=== PATIENT | female | born 1960 | race African-American/Black ===

== ENCOUNTER → 2017-04-10 | Outpatient (CLI) | payer OTHER ==
[~2017-04-10] VITALS: Ht 152.4 cm; Wt 65.3 kg
[~2017-04-10] MED LIST: BACLOFEN 10MG T10 MG PO; DEXILANT60 MG PO; DICLOFENAC SOD50 M1 PO; FLEXERIL PO; LYRICA 50 MG50 MG PO; MOBIC7.5 MG PO; MULTI-VITAMIN1 EAC5 PO; NABUMETONE 500500 M1 PO; TRAMADOL 50 MG50 MG PO; VALCYCLOVIR PO; VITAMIN C + RO500 MG PO; VOLTAREN GEL 1100 G1 TOP
--- NOTE | ~2017-04-10 | HPC ---
[facility] [place] [address] PAIN MANAGEMENT CONSULTATION Name: LÁZARO CHEW Room #: REG [facility].#: [id number] Admission: 04/10/17 Attend Phys: Ilya Herndon DO Discharge: Date of : 60 Report #: [id number] THIS REPORT FOR: //name// CC: FAM physician/PCP Yehuda Herndon DATE OF SERVICE: 04/10/2017 REFERRING PHYSICIAN: Yehuda Mckeon MD CHIEF COMPLAINT: Low back pain, bilateral thigh pain and groin pain, left greater than right. HISTORY OF PRESENT ILLNESS: As you know, the patient is a 56-year-old female who was last seen in our clinic addressing low back pain, bilateral groin pain and anterior thigh pain. We tried the patient on Lyrica, which the patient reports made her symptoms worse. She discontinued use within 2 weeks. She started gabapentin and now 200 mg dose and it appears that this is working better. She is now placing a pain score 5/10. She states the pain is numb, tingling, radiating in sensation, exacerbated with standing and sitting, improves with lying down. She returns today in followup visit for possible adjustments in medication therapy. ALLERGIES: PENICILLIN. CURRENT MEDICATIONS: Dexilant, valacyclovir, diclofenac, and gabapentin. SOCIAL HISTORY: The patient continues to smoke. She has done so for 15 years. Denies IV or illicit drug use. Admits to 3 alcoholic beverages per week. She is unaccompanied today. IMAGING: No new imaging available. PHYSICAL EXAMINATION: VITAL SIGNS: Blood pressure 141/83, pulse 111, respiratory rate 16, unlabored. The patient is 100% on room air. Height 5 feet tall, weight 144 pounds, BMI calculated 28.1. GENERAL: Well-developed, well-nourished, well-hydrated 56-year-old female appearing her stated age. She is placing pain score at 4-5/10. HEENT: Normocephalic, atraumatic. Pupils equal, round, reactive to light. Extraocular muscles are intact. Sclerae are nonicteric without injection. NEUROLOGIC: Cranial nerves 2 through 12 grossly intact. Speech is fluent. EXTREMITIES: Show no clubbing, no cyanosis, no edema. MUSCULOSKELETAL: Seated straight leg raising is negative. Supine straight leg raising is negative. ELLIOT test is negative. Modified Gaenslen's positive for [address] [address] PAIN MANAGEMENT CONSULTATION Name: LÁZARO CHEW Room #: REG [facility]#: [id number] Admission: 04/10/17 Attend Phys: Ilya Herndon DO Discharge: Date of : 60 Report #: [id number] axial low back pain. Ankle clonus negative. Babinski is negative. ASSESSMENT: 1. Lumbar radicular symptoms. 2. Osteoarthritis. 3. Peripheral neuropathy. 4. Intractable pain. PLAN: 1. The patient has returned today in followup visit where we have discussed the efficacy of gabapentin. It appears the patient is doing better with medication. I recommend increasing the dose as tolerated. The patient did contact her primary care physician who is providing his medications and escalate the dose as recommended. She does feel that she is receiving some benefit, I recommend continuation if needed. 2. The patient was provided prescription of diclofenac 50 mg dose 1 tab p.o. t.i.d., I have given the patient #90 tablets, 2 refills. This is being added for anti-inflammatory activity. The patient is tolerating the medication well and wishes to continue therapy. She is denying any side effects of dyspepsia, worsening blood pressure, lower extremity edema with its use. We will continue medication as directed. 3. We will see the patient back in followup visit in 3 months. She can follow up with her PCP if she prefers and receive medications through their services. This is not a controlled substance and should be easily obtained from their clinics. We will be available to see her back in followup visit on an as-needed basis. Otherwise, 3 months for medication management. By: [id number] Ilya Herndon DO /agus
[2017-04-10 12:31] VITALS: BP 141/83
== END ==
LOC: PAIN 02-06 11:00
DX: M54.16 Radiculopathy, lumbar region (principal); M19.90 Unspecified osteoarthritis, unspecified site; R10.30 Lower abdominal pain, unspecified; F17.200 Nicotine dependence, unspecified, uncomplicated; G62.9 Polyneuropathy, unspecified; G89.29 Other chronic pain; Z72.89 Other problems related to lifestyle

== ENCOUNTER → 2017-05-22 | Outpatient (CLI) | payer OTHER ==
[~2017-05-22] VITALS: Ht 152.4 cm; Wt 65.8 kg
[~2017-05-22] MED LIST changes: +DETROL LA4 MG PO; +MOBIC15 MG PO; +NEURONTIN 300300 M1 PO; +NORTRIPTYLINE H25 M3 PO; +PAMELOR50 MG PO; +PAMELOR75 MG PO
--- NOTE | ~2017-05-22 | HPC ---
[facility] [address] [place] [address] PAIN MANAGEMENT CONSULTATION Name: LÁZARO CHEW Room #: REG [facility] M..#: [id number] Admission: 05/22/17 Attend Phys: Ilya Herndon DO Discharge: Date of : 60 Report #: [id number] THIS REPORT FOR: //name// CC: Yehuda Schroederie Frederick DATE OF SERVICE: 05/22/2017 CHIEF COMPLAINT: Low back pain, bilateral thigh pain, groin pain, left greater than right. HISTORY OF PRESENT ILLNESS: As you know, the patient is a 56-year-old female who has been complaining of low back pain, bilateral thigh pain, groin pain with the left side greater than right. We have tried the patient on medication management in hopes of improving neuropathic pain. We tried her on Lyrica, but she discontinued use within 2 weeks. We started the patient on gabapentin, but she has not been taking much of the medication. She is concerned about potential side effects, though she has experienced none to date. She returns today in followup visit stating pain level of 5/10, states pain is exacerbated with walking, standing; improves with lying down. Describes pain as numbness and tingling. She has no changes in medical history since our last visit. ALLERGIES: PENICILLIN. CURRENT MEDICATIONS: Dexilant, acyclovir, diclofenac, gabapentin. SOCIAL HISTORY: The patient continues to smoke. She has done so for 15 years. Denies IV or illicit drug use. Admits to 3 alcoholic beverages per week. She is unaccompanied today. IMAGING: No new imaging available. PHYSICAL EXAMINATION: VITAL SIGNS: Blood pressure 159/93, pulse is 133, respiratory rate 16 and unlabored. The patient is 100% on room air. Height 5 feet tall, weight 145 pounds, BMI calculated 28.3. GENERAL: Well-developed, well-nourished, well-hydrated 56-year-old female, appears stated age, pain is rated at 5/10. HEENT: Normocephalic, atraumatic. Pupils equal, round, reactive to light. Extraocular muscles are intact. Speech fluent. EXTREMITIES: Show no clubbing, no cyanosis, no edema. MUSCULOSKELETAL: Seated straight leg raising negative. Supine straight leg raising negative. ELLIOT test negative. Modified Gaenslen's positive for some axial low back pain. Muscle bulk and tone equal and symmetrical in lower extremities. Stance slightly forward flexed lumbar spine. Gait appears mildly [facility] [address] [place] [address] PAIN MANAGEMENT CONSULTATION Name: LÁZARO CHEW Room #: [facility]#: [id number] Admission: 05/22/17 Attend Phys: Ilya Herndon DO Discharge: Date of : 60 Report #: [id number] antalgic. ASSESSMENT: 1. Lumbar radicular symptoms. 2. Osteoarthritis. 3. Peripheral neuropathy of unknown origin. 4. Chronic intractable pain. 5. Essential hypertension. PLAN: 1. The patient has returned today in followup visit indicating concern about initiating gabapentin therapy. She is concerned she will begin to experience side effects, though she is yet to experience side effects at this time. I recommend escalating dose until which time either side effects become intolerable or pain is improved. As you are aware, gabapentin has a very safe therapeutic window and these medications can be titrated successfully without long-term issues or deficits. I recommend the patient to continue escalating the dose until which time pain is either improved or side effects become intolerable such as sleepiness, disorientation, confusion, mental slowing. At present, the patient is at 200 mg at night, will escalate to 300 mg at night for 7 nights, then increase to 600 mg at night for 7 nights, then to 900 mg at night for 7 nights, then 300 mg morning and 900 mg at night, she was given #120 of the gabapentin 300 mg tablets to initiate the therapy. She was advised anytime during the titration if she notes improvement in symptoms without side effects, stabilize at that dose; if no improvement in symptoms, no side effects, continue the titration as directed. If she reaches a level of side effects with no improvement in symptoms, she is to contact our clinic for further instructions. 2. The patient's blood pressure was noted to be quite elevated today. Blood pressure was 159/93. Previous blood pressure was 141/83. I do believe that this is due to essential hypertension and adjustment needs to be made in the patient's medications. I have suggested the patient return to see her PCP for further evaluation and possible initiation of antihypertensives. 3. We will see the patient back in followup visit in about one month to review efficacy of the gabapentin alteration. <ELECTRONICALLY SIGNED> By: Ilya Herndon DO 05/29/17 0908 [id number] Ilya Herndon DO /nt
[2017-05-22 09:46] VITALS: BP 159/93
== END ==
LOC: PAIN 07:12
DX: M54.16 Radiculopathy, lumbar region (principal); R10.30 Lower abdominal pain, unspecified; M19.91 Primary osteoarthritis, unspecified site; G62.9 Polyneuropathy, unspecified; G89.29 Other chronic pain; I10 Essential (primary) hypertension; Z72.89 Other problems related to lifestyle

== ENCOUNTER → 2017-07-10 | Outpatient (CLI) | payer OTHER ==
[~2017-07-10] VITALS: Ht 152.4 cm; Wt 64.5 kg
--- NOTE | ~2017-07-10 | HPC ---
[facility] [place] [place] [address] PAIN MANAGEMENT CONSULTATION Name: LÁZARO CHEW Room #: REG [facility]..#: [id number] Admission: 07/10/17 Attend Phys: Ilya Herndon DO Discharge: Date of : 60 Report #: [id number] THIS REPORT FOR: //name// CC: Yehuda Mack MD DATE OF SERVICE: 07/10/2017 REFERRING PHYSICIAN: Yehuda Mckeon MD CHIEF COMPLAINT: Bilateral lower extremity pain. HISTORY OF PRESENT ILLNESS: As you know, the patient is a 56-year-old female who complains of low back pain, bilateral anterior thigh pain, groin pain and bilateral lower extremity pain. She is continuing workup through neurology for small peripheral nerve fiber issues. She recently underwent EMG, which shows a subacute mild right lumbosacral radiculopathy, but also shows the possibility of small nerve issues. She continues the workup with the neurologists. She has been referred back to our clinic to discuss options for treatment for this ongoing paresthesias. She is placing pain score at 8/10, states her symptoms are numbness, tingling, constant, exacerbated with walking, standing, putting shoes on her socks and lying down appears to improve pain. She has been referred back to our clinic to discuss the possibility of making some changes in medication therapy to address neuropathic symptoms. ALLERGIES: PENICILLIN. CURRENT MEDICATIONS: Meloxicam 15 mg once a day, gabapentin 300 mg twice a day, Detrol-LA 4 mg per day, Dexilant 60 mg per day, and valacyclovir 1 gram every day. SOCIAL HISTORY: The patient continues to smoke, has done so for greater than 16 years. Denies IV or illicit drug use, admits to 3 alcoholic beverages per week. She is accompanied by her niece who is present in room today. IMAGING: No new imaging available. PQRS: The patient has no known osteoarthritis or rheumatoid arthritis. She places pain intensity at 8/10. She is not a fall risk, has not had a fall in the past 3 months. She is not on blood thinners. She does have diagnosis of hypertension. She is not on opioids and not under opioid contract. She has a medium level concern for opioid dependency. Functional assessment tool 54/70 indicating severe interference of daily activities secondary to pain. [address] [address] PAIN MANAGEMENT CONSULTATION Name: LÁZARO CHEW Room #: REG [facility]#: [id number] Admission: 07/10/17 Attend Phys: Ilya Herndon DO Discharge: Date of : 60 Report #: [id number] PHYSICAL EXAMINATION: VITAL SIGNS: Blood pressure 163/99, pulse is 121, respiratory rate 20 and unlabored, the patient is 100% on room air, height 5 feet tall, weight 142.2 pounds, and BMI calculated 27.8. GENERAL: Well-developed, well-nourished, well-hydrated 56-year-old female, appearing her stated age, placing current pain score at 8/10. HEENT: Normocephalic, atraumatic. Pupils are equal, round, and reactive to light. Extraocular muscles are intact. NEUROLOGIC: Speech fluent. EXTREMITIES: Show no clubbing, no cyanosis, and no edema. MUSCULOSKELETAL: Seated straight leg raising negative. Supine straight leg raising negative. Tyrone's test negative. Modified Gaenslen's positive for some axial low back pain. There is no hyperalgesia or allodynia noted over the lower extremities in all dermatomal distributions. Palpation of the distal pulses is normal. No temperature variation from left to right lower extremity. She does have tenderness to palpation at 10 of 18 tender points indicative of myofascial pain. ASSESSMENT: 1. Peripheral neuropathy. 2. Small fiber neuropathy. 3. Chronic lumbar radiculopathy. 4. Myofascial pain. 5. Chronic intractable pain. PLAN: 1. The patient has returned today in followup visit where we have discussed the recent workup with neurology. It appears that she does have a mild lumbar radiculopathy only involving one of the lower extremities. The EMG indicates right-sided specifically. This would not account for the patient's numbness and tingling bilaterally, the distribution of symptoms is generalized multi-dermatomal and would not correlate to the findings of that EMG. There was some suggestion that the patient might be suffering from small fiber neuropathy, I feel this is more likely given the distribution of symptoms the patient has been experiencing. She does present very similarly to early fibromyalgia type picture as she is now experiencing generalized pain in nondermatomal distribution with excitation of neuronal fibers causing pain. I would recommend given the findings on physical exam, the possibility she may be suffering from neuropathic symptoms specifically that we begin to escalate the appropriate medications in this case, neuropathic pain medications. The patient is currently on a very low dose of gabapentin and I believe escalating this dose is going to be important, whether this is going to resolve the symptoms from a neuropathy standpoint I am not confident, but certainly we need to address the neuropathy with neuropathic symptom management. 2. We discussed the different neuropathic pain medications we have available, these would include Neurontin in the form of either immediate release or long [address] [address] PAIN MANAGEMENT CONSULTATION Name: LÁZARO CHEW Room #: REG [facility]#: [id number] Admission: 07/10/17 Attend Phys: Ilya Herndon DO Discharge: Date of : 60 Report #: [id number] acting Gralise, we discussed Lyrica, we discussed nortriptyline, amitriptyline, we discussed Cymbalta at higher doses, we discussed the sodium channel blockers as possible treatment options. After a long discussion of the various medications, we chose to move forward with long acting gabapentin in hopes of being able to provide the patient with escalating doses of medication with lower side effects than we see with immediate release gabapentin. At present, the patient is experiencing some somnolence and daytime sleepiness secondary to her gabapentin therapy, this would indicate that transitioning to the long-acting form of this medication would be most appropriate. I wish to continue to escalate the Neurontin as that has a very safe side effect profile and I believe can be extremely effective in controlling the patient's symptoms. We will make the following changes today. 3. The patient will be started on Gralise 900 mg dose, she was given a titration pack to escalate from 900 mg once a day, which is the equivalent of 900 mg 3 times a day of immediate release formulation and then escalate from that point forward changing doses every 4 days, she will do 900 mg for 4 days at night, then moved to 1200 mg for 4 days at night, then 1500 mg for 4 days, then up to 1800 mg assuming it is necessary. The patient was advised anytime during the titration she notes improvement in symptoms to contact our clinic to advise us of the dosing that she is currently on and we will make that prescription available. If the Gralise is ineffective or side effects are reached early and no improvement in symptoms, we will have the patient return to trial the next in the series of medications likely either Lyrica or initiation of nortriptyline, amitriptyline combination. 4. We wish to thank Dr. Mckeon for the referral of the patient to our clinic, once we have stabilized the patient on the medication, we will be returning her to your capable hands. <ELECTRONICALLY SIGNED> By: Ilya Herndon DO 07/24/17 0858 [id number] Ilya Herndon DO /nt
[2017-07-10 08:40] VITALS: BP 163/99
== END ==
LOC: PAIN 06-19 22:46
DX: M54.16 Radiculopathy, lumbar region (principal); G62.9 Polyneuropathy, unspecified; M79.1 Myalgia; G89.4 Chronic pain syndrome; M79.605 Pain in left leg; M79.604 Pain in right leg

== ENCOUNTER → 2017-07-24 | Outpatient (CLI) | payer OTHER ==
[~2017-07-24] VITALS: Ht 152.4 cm; Wt 63.5 kg
[~2017-07-24] MED LIST changes: -PAMELOR50 MG PO; -PAMELOR75 MG PO
[2017-07-24 14:26] VITALS: BP 163/95
== END ==
LOC: PAIN 07:04
DX: M79.604 Pain in right leg (principal); M79.605 Pain in left leg; I10 Essential (primary) hypertension; M19.90 Unspecified osteoarthritis, unspecified site; Z79.891 Long term (current) use of opiate analgesic

== ENCOUNTER → 2017-11-28 | Outpatient (CLI) | payer OTHER ==
[~2017-11-28] VITALS: Ht 152.4 cm; Wt 69.1 kg
[~2017-11-28] MED LIST changes: +PAMELOR50 MG PO; +PAMELOR75 MG PO
[2017-11-28 14:42] VITALS: BP 134/82
== END ==
LOC: PAIN 06:29
DX: Z09 Encounter for follow-up examination after completed treatment for conditions other than malignant neoplasm (principal); M79.604 Pain in right leg; I10 Essential (primary) hypertension; Z87.891 Personal history of nicotine dependence; Z79.899 Other long term (current) drug therapy

== ENCOUNTER → 2018-03-05 | Outpatient (CLI) | payer OTHER ==
[~2018-03-05] VITALS: Ht 152.4 cm; Wt 70.0 kg
--- NOTE | ~2018-03-05 | HPC ---
[facility] [place] [address] [place] [address] PAIN MANAGEMENT CONSULTATION Name: LÁZARO CHEW Room #: REG [facility].#: [id number] Admission: 03/05/18 Attend Phys: Ilya Herndon DO Discharge: Date of : 60 Report #: [id number] THIS REPORT FOR: //name// CC: Yehuda Mack MD DATE OF SERVICE: 03/05/2018 CHIEF COMPLAINT: Bilateral lower extremity pain with paresthesias. HISTORY OF PRESENT ILLNESS: As you know, the patient is a 57-year-old female reporting pain today of around 2-3/10. We have started the patient on neuropathic pain medication in the form of nortriptyline, which has been quite successful in alleviating the patient's bilateral lower extremity paresthesias. She returns today in followup visit requesting refills of nortriptyline at 75 mg dose. She takes 2 tabs p.o. at bedtime for a total of 150 mg per day. She is denying any side effects to medication and notes excellent benefit with its use. She returns today requesting refill of medications. She denies any new injury, new trauma or any changes in medical history since our last visit. ALLERGIES: No known drug allergies. CURRENT MEDICATIONS: Nortriptyline 150 mg p.o. q.a.m., meloxicam 15 mg once a day, Detrol-LA 4 mg once a day, Dexilant 60 mg once a day, valacyclovir 1 gram once a day. SOCIAL HISTORY: The patient continues to smoke. She has done this for 17 years. Denies IV or illicit drug use. Admits to 3 alcoholic beverages per week. She is unaccompanied today. IMAGING: No new imaging available. PHYSICAL EXAMINATION: VITAL SIGNS: Blood pressure 143/99, pulse 119, respiratory rate 16 and unlabored. The patient is 100% on room air. Height 5 feet tall, weight 154.4 pounds, BMI calculated 30.2. GENERAL: Well-developed, well-nourished, well-hydrated 57-year-old female. She appears her stated age. She is placing current pain score at 2-3/10. HEENT: Normocephalic, atraumatic. Pupils equal, round, reactive to light. Extraocular muscles are intact. Sclerae nonicteric without injection. NEUROLOGIC: Cranial nerves 2 through 12 grossly intact. Speech is fluent. The patient deemed an excellent historian. LUNGS: Clear, no wheeze, rhonchi or rales. CARDIOVASCULAR: Tachycardic. No appreciable gallop, [place] [address] PAIN MANAGEMENT CONSULTATION Name: LÁZARO CHEW Room #: REG [facility]#: [id number] Admission: 03/05/18 Attend Phys: Ilya Herndon DO Discharge: Date of : 60 Report #: [id number] ABDOMEN: Soft, mildly obese, normoactive bowel sounds. EXTREMITIES: Show no clubbing, no cyanosis, no edema. MUSCULOSKELETAL: Seated straight leg raising negative. Supine straight leg raising negative. Tyrone's test negative. Modified Gaenslen's positive once again for axial back pain, no radiation of symptoms. There is some palpatory tenderness over the paraspinal musculature of the lower lumbar spine. There is no hyperalgesia, no allodynia and no changes in skin color or texture concerning of a complex regional pain syndrome in the lower extremities. ASSESSMENT: 1. Peripheral neuropathy. 2. Small fiber neuropathy. 3. Chronic intractable pain. PLAN: 1. The patient returns today in followup visit requesting refill on her nortriptyline. She denies side effects of medication except for some weight gain that she attributes to the medication itself. This could be possible as the medication does show potential for weight increase over time. This may be related to the medication or may be related to other issues. I have cautioned the patient about her increase in weight in the past and have suggested possible more careful control of her diet, adjusting for less carbohydrates and decreasing fats, this will likely improve the patient's weight. If she adds some exercise to this program this will certainly improve weight issues and may also improve her overall pain. She will consider that as an option. 2. The patient has requested refill of nortriptyline. I have given her 75 mg tablets 2 tabs p.o. q.a.m., total of 150 mg per day. I have given her #60 tablets with 2 refills, 3 months' worth of medication. The patient can continue this medication for the foreseeable future assuming no major side effects other than the weight gain she has noted, which can be treated conservatively. She is doing very well with the medication, no major side effects to date. We recommend she continue the medication for neuropathic pain control. 3. We will see the patient back in followup visit in 3 months. If she wishes and she is following with her PCP more closely, she can receive refills through their services as this is not a controlled substance. If she is unable to do so or wishes to continue seeking treatment through our services, she may return in 3 months for medication management. <ELECTRONICALLY SIGNED> By: Ilya Herndon DO 03/06/18 0909 [id number] Ilya Herndon DO /agus
[2018-03-05 08:50] VITALS: BP 143/99
== END ==
LOC: PAIN 07:03
DX: G62.9 Polyneuropathy, unspecified (principal); G89.4 Chronic pain syndrome; G60.8 Other hereditary and idiopathic neuropathies

== ENCOUNTER → 2018-07-09 | Outpatient (CLI) | payer OTHER ==
[~2018-07-09] VITALS: Ht 177.8 cm; Wt 72.0 kg
[~2018-07-09] MED LIST changes: +VITAMIN D2000 UNIT PO
--- NOTE | ~2018-07-09 | HPC ---
[facility] [place] [address] [address] [place] [address] PAIN MANAGEMENT CONSULTATION Name: LÁZARO CHEW Room #: REG [facility].#: [id number] Admission: 07/09/18 ������������������ Attend Phys: Ilya Herndon DO Discharge: ������������������ Date of : 60 Report #: [id number] THIS REPORT FOR: //name// CC: Yehuda Mack MD DATE OF SERVICE: 07/09/2018 REFERRING PHYSICIAN: Yehuda Mckeon MD. CHIEF COMPLAINT: Bilateral lower extremity pain and paresthesias. HISTORY OF PRESENT ILLNESS: As you know, the patient is a very pleasant 57-year-old female returning today in followup visit for continuation of medication therapy. She is placing her pain today at 0/10. She is extremely pleased with response to the nortriptyline 150 mg p.o. q.a.m. She is experiencing only minor side effects with the drug including some dryness and minimal constipation, but otherwise doing well. She feels medications are working quite beneficially. She returns today in followup visit requesting a refill of the therapy. Again pain is rated at 0/10. When she is experiencing symptoms, it is tingling, burning and numbness in sensation, exacerbated with wearing shoes and different activities. ALLERGIES: No known drug allergies. CURRENT MEDICATIONS: Nortriptyline 150 mg p.o. q.a.m., meloxicam 15 mg once a day, Detrol-LA 4 mg once a day, Dexilant 60 mg once a day, valacyclovir 1 gram per day. SOCIAL HISTORY: The patient reports she is a smoker. She has smoked for about 17-1/2 years. Denies IV or illicit drug use. Admits to 3 alcoholic beverages per week. She is unaccompanied today. IMAGING: No new imaging available. PHYSICAL EXAMINATION: VITAL SIGNS: Blood pressure 163/98, pulse 109, respiratory rate 16 and unlabored. The patient is 100% on room air. Height 5 feet 10 inches tall, weight 158.8 pounds, BMI calculated 22.8. GENERAL: Well-developed, well-nourished, well-hydrated 57-year-old female, appearing stated age, placing current pain score 0/10. HEENT: Normocephalic, atraumatic. Pupils equal, round, reactive to light. EXTREMITIES: Show no clubbing, no cyanosis, no edema. MUSCULOSKELETAL: The patient has changes in [place] [address] PAIN MANAGEMENT CONSULTATION Name: LÁZARO CHEW Room #: REG [facility]#: [id number] Admission: 07/09/18 ������������������ Attend Phys: Ilya Herndon DO Discharge: ������������������ Date of : 60 Report #: [id number] left wrist. It appears that she has been exposed to steroids. There is some atrophy of the tissue as well as some skin color changes consistent with steroid exposure. The patient has a negative seated straight leg raising, negative supine straight leg raising. ELLIOT test negative. Modified Gaenslen's positive for axial low back pain. ASSESSMENT: 1. Peripheral neuropathy. 2. Small fiber neuropathy. 3. Chronic intractable pain. PLAN: 1. The patient has returned today in followup visit requesting refill of her nortriptyline medication. She feels this medication has been quite beneficial for pain control. She requests refills for the next 3 months. She is denying any specific side effects of medication except for some minimal somnolence and some constipation issues, easily resolved with [id number] treatment. Overall, the patient states she is doing well, requesting refill of the medications today. 2. The patient was provided prescription of nortriptyline 75 mg dose 2 tabs p.o. q.a.m. for a total of 150 mg. She was given #60 tablets, 2 refills, 3 months' worth of medication. 3. The patient has some changes of the skin color and texture overlying the left wrist. It does appear that she has had some changes secondary to steroid exposure in the area. Apparently, she has undergone some injections of the tendinous areas in this area and this is likely the source of her symptoms, though I do feel that she is receiving some irritation from the Fitbit that she is wearing due to the silicone band. I have requested that the patient move the silicone band and Fitbit to the opposite arm for a short period of time to determine if this is exacerbating the symptoms or whether it was not contributing in any way. The patient is to follow up with the orthopedic physician who provided the injection in the next couple of weeks. They can discuss this further. 4. We will see the patient back in followup visit in 3 months. Certainly, the patient can receive the refills of the nortriptyline through her PCP. This is not a controlled substance. She has been stabilized on the dose and this is a medication that can be easily provided by a PCP if they wish to do so. Otherwise, we will see the patient back in followup visit in 3 months for medication management. ��������������������������������������������� ���������������������������������������� By: ��������������������������������������������� [id number] Ilya Herndon, DO /nt
[2018-07-09 09:07] VITALS: BP 163/98
--- NOTE | 2018-07-09 09:22 | NUR ---
Pain Clinic Assessment: 1. History of Osteoarthritis: Not Applicable History of Rheumatoid Arthritis: Not Applicable 2. Height: 5 ft. 10 in. 177.8 cm. Weight: 158.8 lb. oz. 72.031 kg. Patient's BMI: 22.8 3. Vital Signs: BP: 163/98 Pulse: 109 Resp: 16 Temp: 02 Sat: 100 ECG Mon: 4. Pain Intensity: 0 5. Fall Risk: Dizziness: N Needs help standing or walking: N Fallen in the last 3 months: N Fall risk comments: 6. Patient on Blood Thinner: None 7. History of Hypertension: Y 8. Opioid Therapy greater than 6 weeks: N Opiate Contract Signed: 9. Risk Assessment Tool Provided: LOW RISK 0/3 10. Functional Assessment Tool: 50/70 11. Recreational Drug Use: Never Drug Type: Tobacco Use: Current Every Day Smoker Tobacco Type: Cigarettes Amount or Packs/day: 6 per day How Many Years: 20 Alcohol Use: Yes Frequency: Daily Quant: 1 wine
== END ==
LOC: PAIN 07-03 07:35
DX: G89.4 Chronic pain syndrome (principal); G60.8 Other hereditary and idiopathic neuropathies; G90.09 Other idiopathic peripheral autonomic neuropathy; F17.210 Nicotine dependence, cigarettes, uncomplicated; M79.662 Pain in left lower leg; M79.661 Pain in right lower leg; M79.672 Pain in left foot; M79.671 Pain in right foot; Z72.89 Other problems related to lifestyle; Z79.899 Other long term (current) drug therapy

== ENCOUNTER → 2018-10-07 | Outpatient (CLI) | payer OTHER ==
[~2018-10-07] VITALS: Ht 162.6 cm; Wt 70.9 kg
[2018-10-07 13:13] VITALS: BP 152/98
--- NOTE | 2018-10-07 13:42 | NUR ---
Pain Clinic Assessment: 1. History of Osteoarthritis: Not Applicable History of Rheumatoid Arthritis: Not Applicable 2. Height: 5 ft. 4 in. 162.6 cm. Weight: 156.4 lb. oz. 70.943 kg. Patient's BMI: 26.8 3. Vital Signs: BP: 152/98 Pulse: 101 Resp: 14 Temp: 02 Sat: 100 ECG Mon: 4. Pain Intensity: 0 5. Fall Risk: Dizziness: N Needs help standing or walking: N Fallen in the last 3 months: N Fall risk comments: 6. Patient on Blood Thinner: None 7. History of Hypertension: N 8. Opioid Therapy greater than 6 weeks: N Opiate Contract Signed: 9. Risk Assessment Tool Provided: LOW RISK 0 10. Functional Assessment Tool: 11. Recreational Drug Use: Never Drug Type: Tobacco Use: Former Smoker Tobacco Type: Amount or Packs/day: How Many Years: Alcohol Use: Yes Frequency: Daily Quant: 1
--- NOTE | 2018-10-08 09:01 | HPC ---
[facility] [address] [place] [address] [place] [address] PAIN MANAGEMENT CONSULTATION Name: LÁZARO CHEW Room #: REG [facility].#: [id number] Admission: 10/07/18 ������������������ Attend Phys: Kavita Jones Discharge: ������������������ Date of : 60 Report #: [id number] THIS REPORT FOR: //name// CC: Kavita Jones Camryn Mack DATE OF SERVICE: 10/07/2018 CHIEF COMPLAINT: Bilateral lower extremity pain and paraesthesias. HISTORY OF PRESENT ILLNESS: This is a very pleasant 57-year-old female who returns to the pain clinic today for a refill of her nortriptyline that she uses to treat her neuropathic pain. The patient tells me that this medication helps quite well in relieving her symptoms and her lower extremity paresthesias, rating her pain score, numbness score is 0 today. She tells me she takes her medication in the morning due to the side effects she had of keeping her up when she took it at night. Most of her pain is located in her right leg and both of her feet. She tells me her pain is worse when she wears the wrong shoes, but this medication is very helpful. The patient tells me that she only has side effect of some dry mouth, but she drinks plenty of liquids and is able to deal with that. The patient tells me she is trying to be more active. She did take a swimming class and learning how to swim and has signed up to take another one. She enjoyed this class and she is hopeful that by swimming that will also help her able to lose a little bit of weight that she feels that she has gained since started taking the, Neurontin, the nortriptyline. ALLERGIES: PENICILLIN. CURRENT MEDICATIONS: Nortriptyline 75 mg 2 capsules daily, vitamin D, Detrol 4 mg daily, Dexilant 60 mg and valacyclovir. PQRS: 1. She denies a history of osteoarthritis or rheumatoid arthritis. Her height is 5 feet 4 inches, her weight is 156 and her BMI is 26. Vital signs 152/98, pulse is 101, respirations 14 and oxygen sat is 100. Pain score is 0. Fall risk. Denies dizziness. Does not need help walking or standing and has not fallen in the last 3 months. She is not on any blood thinners and does not have a history of hypertension. She does not take any opioids. Her risk assessment tool is low. Her functional assessment is 3/70. Recreational drug use, she denies. She is a former smoker and occasionally drinks alcohol. We did not check the prescription monitoring system since she is not feeling any narcotics through our clinic. PHYSICAL EXAMINATION: [facility] [address] [place] [address] PAIN MANAGEMENT CONSULTATION Name: LÁZARO CHEW Room #: REG [facility] Rios#: [id number] Admission: 10/07/18 ������������������ Attend Phys: Kavita Jones Discharge: ������������������ Date of : 60 Report #: [id number] GENERAL: This is a well-developed, well-nourished, well-hydrated 57-year-old female who appears her stated age. Placing her overall pain score is 0 today. HEENT: Normocephalic and atraumatic. Pupils equal, round and reactive to light. Extraocular eye muscles are intact. MUSCULOSKELETAL: Straight leg raising is negative. Modified Gaenslen's positive for axial back pain with no radiation of symptoms. She has tenderness across the lumbar spine. IMPRESSION: 1. She complains of bilateral foot pain with numbness. 2. Peripheral neuropathy. 3. Small fiber neuropathy. 4. Chronic intractable pain. PLAN: 1. The patient returns today to the pain clinic to discuss treatment options and a refill of her nortriptyline. The patient tells me that she is doing quite well with this medication. It helps relieve her neuropathy symptoms, though she does complain of some weight gain associated with its medication. The patient talks to me about she is adjusting her diet and then she has recently started swimming lessons and hopeful that will also help decrease some of her weight. It is noted that she has only gained 2 pounds since her last visit in July. 2. Scripts given today for nortriptyline 75 mg 2 capsules every day, a total of 150 per day, quantity of 180 with 3 additional refills. This is a 3-month supply of the medications. I informed the patient that she can return in 1 year to follow up with us or she can seek this medication refill from her primary care doctor. It will be her decision that we would need to see her at least on a yearly basis if we continue to write this medicine for her. 3. The patient is seen in collaboration today with Dr. Norman Smith. ��������������������������������������������� <ELECTRONICALLY SIGNED> ���������������������������������������� By: Kavita Jones ��������������������������������������������� 10/08/18 0901 [id number] Kavita Jones /agus
== END ==
LOC: PAIN 06:47
DX: M79.671 Pain in right foot (principal); M79.672 Pain in left foot; G89.4 Chronic pain syndrome; G62.9 Polyneuropathy, unspecified; Z79.899 Other long term (current) drug therapy; Z87.891 Personal history of nicotine dependence; Z72.89 Other problems related to lifestyle; Z88.0 Allergy status to penicillin

== ENCOUNTER → 2019-09-30 | Outpatient (CLI) | payer OTHER ==
[~2019-09-30] VITALS: Ht 162.6 cm; Wt 73.6 kg
--- NOTE | ~2019-09-30 | HPC ---
[facility] [place] [address] [address] [place] [address] PAIN MANAGEMENT CONSULTATION Name: LÁZARO CHEW Room #: REG [facility].#: [id number] Admission: 09/30/19 Attend Phys: Ilya Herndon DO Discharge: Date of : 60 Report #: [id number] THIS REPORT FOR: cc: Camryn Mack MD, Stephanie F. MD Johnson, James E. DO ~ CC: Yehuda Mack MD DATE OF SERVICE: 09/30/2019 CHIEF COMPLAINT: Bilateral lower extremity pain with paresthesias. HISTORY OF PRESENT ILLNESS: As you know, the patient is a very pleasant 58-year-old female returning in followup visit to discuss continuation of her neuropathic medication for which she takes nortriptyline for bilateral lower extremity neuropathy. The patient is reporting a pain score today 0/10. She states the medications are working beneficially for pain control, but does wish to discuss the possibility of a rotation in medication as she is concerned of possible weight gain with the medication. She has been more sedentary of late and volunteers that she has been eating more frequently with the COVID virus restrictions which have limited her activity. She returns today to discuss the possibility of making adjustments in medication management. ALLERGIES: No known drug allergies. CURRENT MEDICATIONS: Nortriptyline 75 mg 2 tabs p.o. at bedtime, cholecalciferol 2000 units once a day, Detrol-LA 4 mg once a day, Dexilant 60 mg once a day, valacyclovir 1 gram orally once a day. SOCIAL HISTORY: The patient denies IV or illicit drug use. Denies any chronic alcohol use. She smokes and has smoked about 1-1/4 of a pack per day for up to 16 years. She is continuing to work. She is unaccompanied today. IMAGING: No new imaging available. PHYSICAL EXAMINATION: VITAL SIGNS: Blood pressure 137/96, pulse is 102, respiratory rate 16 and unlabored. The patient is 100% on room air. Height 5 feet 4 inches tall, weight 162.2 pounds and BMI calculated 27.8. GENERAL: Well-developed, well-nourished, well-hydrated 58-year-old female, appearing stated age, pain is rated today 0/10. HEENT: Normocephalic, atraumatic. Pupils equal, round, reactive to light. Speech fluent. [facility] [address] [place] [address] PAIN MANAGEMENT CONSULTATION Name: LÁZARO CHEW Room #: REG [facility]#: [id number] Admission: 09/30/19 Attend Phys: Ilya Herndon DO Discharge: Date of : 60 Report #: [id number] EXTREMITIES: Show no clubbing, no cyanosis, and no edema. MUSCULOSKELETAL: Lower extremity strength appears symmetrical again today 5/5. Muscle bulk and tone equal and symmetrical in comparing lower extremities. Seated straight leg raising negative. Supine straight leg raising negative. ELLIOT's test is negative. Modified Gaenslen's still positive for some axial back pain, but there is no radiation of symptoms beyond the lower lumbar area. No radiation into the buttocks. ASSESSMENT: 1. Bilateral foot pain and paresthesias. 2. Peripheral neuropathy. 3. Small fiber neuropathy. 4. Chronic intractable pain. PLAN: 1. The patient has returned today in followup visit to discuss options for treatment. She feels the medications are working beneficially for pain control, in fact, she is reporting a pain score today 0/10. She is concerned of some weight gain with the nortriptyline medication. She has had an increase in weight from 156.4 pounds in 10/2018 to 162.2 pounds as of 09/30/2019. The patient and I had a long conversation today about weight gain and medications. Nortriptyline, amitriptyline, Cymbalta, Lyrica, and gabapentin, all have a potential of weight gain due to the mechanisms of action, though there is no weight gain without increase in caloric intake and a decrease in caloric output. It does appear, based on the patient's history today that her exercise level has dropped significantly in the past 2 months due to COVID restrictions. She has not been getting out. She has not been doing any activities of any type other than some small walks around her neighborhood. It would appear to this physician that her caloric intake has out-paced her caloric output and thus a weight gain has occurred. We did discuss that each of the neuropathic pain medications can lead to some weight gain if one is not careful with caloric intake and I believe this is the case in this patient's situation. We discussed this with the patient at length today. We did review the chart today and she has been on Lyrica, gabapentin and Cymbalta, all of which she failed for either side effects or lack of efficacy. The fact that she has complete resolution of her symptoms with nortriptyline, I would recommend she remain on the therapy with the understanding that she needs to adjust her food intake to match or be lower than her caloric output if weight is a concern. The patient will consider this option and discuss at our next visit. 2. The patient was provided a refill prescription on nortriptyline 75 mg dose 2 tabs p.o. at bedtime, a total of 150 mg per day. I have given the patient 180 tablets, which is 3 months' worth of medication and refills for an entire year. I will be available to see the patient back in followup visit if she wishes to discuss further treatment options or adjust medications if her weight becomes a considerable issue. At this point, I would recommend adjustments in her diet [facility] [address] [place] [address] PAIN MANAGEMENT CONSULTATION Name: LÁZARO CHEW Room #: REG [facility]#: [id number] Admission: 09/30/19 Attend Phys: Ilya Herndon DO Discharge: Date of : 60 Report #: [id number] and exercise program maintaining the efficacy of the neuropathic medication currently provided. By: 1145 [id number] Ilya Herndon DO /nt
[2019-09-30 09:29] VITALS: BP 137/96
--- NOTE | 2019-09-30 09:37 | NUR ---
Pain Clinic Assessment: 1. History of Osteoarthritis: Not Applicable History of Rheumatoid Arthritis: Not Applicable 2. Height: 5 ft. 4 in. 162.6 cm. Weight: 162.2 lb. oz. 73.573 kg. Patient's BMI: 27.8 3. Vital Signs: BP: 137/96 Pulse: 102 Resp: 16 Temp: 02 Sat: 100 ECG Mon: 4. Pain Intensity: 0 5. Fall Risk: Dizziness: N Needs help standing or walking: N Fallen in the last 3 months: N Fall risk comments: 6. Patient on Blood Thinner: None 7. History of Hypertension: N 8. Opioid Therapy greater than 6 weeks: N Opiate Contract Signed: 9. Risk Assessment Tool Provided: LOW RISK 0 10. Functional Assessment Tool: 11. Recreational Drug Use: Never Drug Type: Tobacco Use: Former Smoker Tobacco Type: Cigarettes Amount or Packs/day: 1/4 How Many Years: 25 Alcohol Use: Yes Frequency: Daily Quant: WINE
== END ==
LOC: PAIN 06:48
DX: G62.9 Polyneuropathy, unspecified (principal); R20.2 Paresthesia of skin

== ENCOUNTER → 2020-09-14 | Outpatient (CLI) | payer OTHER ==
[~2020-09-14] MED LIST changes: +NORTRIPTYLINE H75 M1 PO
--- NOTE | 2020-09-15 07:13 | HPC ---
[facility] [place] [address] PAIN MANAGEMENT CONSULTATION Name: LÁZARO CHEW Room #: REG [facility]..#: [id number] Admission: 09/14/20 Attend Phys: Kavita Jones Discharge: Date of : 60 Report #: [id number] THIS REPORT FOR: cc: Carmyn Mack MD,Kavita Harris MD ~ DOC #: [id number] cc: Camryn Mack MD, Ilya Herndon DO DATE OF SERVICE: 09/14/2020 CHIEF COMPLAINT: Bilateral lower extremity pain and paresthesias and left ankle pain. HISTORY OF PRESENT ILLNESS: As you know, this is a very pleasant 59-year-old female. I am speaking with her via the telephone today for a telehealth appointment that she has agreed upon and understands the risks including the potential for medical inaccuracies, giving our recommendations that may be some reported information. The patient understands the benefits of proceeding with alternatives which include the potential need for subject [id number] care. The patient understands well as privacy and confidentiality placed to telemed. The patient verbally agrees to proceed with a telemed encounter. The patient is reporting that she fell the night of Super Bowl and fractured her left ankle. She reports having surgery on 06/24/2020 and has been nonweightbearing since then. She reports having to live with her niece because she is unable to live alone due to her situation in her house with stairs. She is very dependent on her niece, but is slowly making progress and is hopeful that tomorrow when she sees her orthopedic doctor, she will be able to be partial weightbearing. Today, she is requesting a refill of her nortriptyline and to schedule an appointment in one month where she is hopeful that she will be able to come and see Dr. Herndon. The patient reports a pain score of 0/10 in her right leg and bilateral feet. She believes that nortriptyline are very beneficial in helping the burning sensation that she feels and has been very beneficial for that medicine during this time of healing in her left ankle. She did obtain some opioid medications from her surgeon, but we do not provide any opioid medications for her. She states she has been very restricted in her movement, so therefore her pain has also been diminished due to the fact as well. ALLERGIES: No known drug allergies. CURRENT LIST OF MEDICATIONS: Nortriptyline 150 mg at bedtime, vitamin D., Detrol, vitamin C, multivitamin, valacyclovir, and Dexilant. [address] [address] PAIN MANAGEMENT CONSULTATION Name: LÁZARO CHEW Room #: REG [facility].#: [id number] Admission: 09/14/20 Attend Phys: Kavita Jones Discharge: Date of : 60 Report #: [id number] PQRS: 1. She denies any osteoarthritis or rheumatoid arthritis. 2. Height, weight and vital signs are deferred due to Telemed appointment. Pain score is 0. 3. Fall risk: Denies dizziness. She needs assistance with walking, she has fallen in the last 3 months. 4. The patient is not on any blood thinners or medicine for hypertension. 5. Opioid therapy near her surgery day, but none since then. 6. Risk assessment is 0. Functional assessment is 07/11. 7. Recreational drug use: She denies. She is a former smoker and occasionally drinks alcohol. PHYSICAL EXAMINATION: GENERAL: This is an alert and orientated 59-year-old female who is answering all my questions appropriately. She is a good historian. MUSCULOSKELETAL: She reports nonweightbearing, although left using a walker. Presently denies numbness or tingling in her lower extremities. ASSESSMENT: 1. Bilateral foot pain with paresthesias . 2. Peripheral neuropathy. 3. Small fiber neuropathy. 4. Recent left ankle fracture requiring surgical intervention. 5. Chronic intractable pain. PLAN: 1. We discussed treatment options with the patient today. The patient believes her usual neuropathic pain is controlled with her nortriptyline, taking 150 mg at bedtime and like a renewal of this medication. We will provide her with a 30-day supply and schedule her back to see Dr. Ilya Herndon within a month since it has been 1 year since her last visit with this patient. The patient is agreeable with this. She would like to see Dr. Herndon when she is hopefully weightbearing that is her goal within the next 30 days. 2. Scripts will be sent electronically to her pharmacy 75 mg #60 for 1 month supply. 3. The patient was seen today in consultation for this telemed appointment with discussion with Dr. Ilya Herndon. Kavita Jones NP /[address] [address] PAIN MANAGEMENT CONSULTATION Name: CHEW,SHARON KORIN Room #: REG [facility] Rios#: [id number] Admission: 09/14/20 Attend Phys: Kavita Jones Discharge: Date of : 60 Report #: [id number] <ELECTRONICALLY SIGNED> By: Kavita Jones 09/15/20 07 0826 2129 Kavita Jones /nt
== END ==
LOC: TELEPC 06:57 → PAIN 13:23 → TELEPC 13:27
PROVIDERS: ATTEND Clinical Nurse Specialist Adult Health
DX: M79.672 Pain in left foot (principal); M79.671 Pain in right foot; G62.9 Polyneuropathy, unspecified; G89.29 Other chronic pain; Z88.8 Allergy status to other drugs, medicaments and biological substances; Z79.899 Other long term (current) drug therapy

== ENCOUNTER → 2020-10-12 | Outpatient (CLI) | payer OTHER ==
[~2020-10-12] VITALS: Ht 162.6 cm; Wt 77.0 kg
[2020-10-12 11:04] VITALS: BP 147/82
--- NOTE | 2020-10-12 11:39 | NUR ---
Pain Clinic Assessment: 1. History of Osteoarthritis: Not Applicable History of Rheumatoid Arthritis: Not Applicable 2. Height: 5 ft. 4 in. 162.6 cm. Weight: 169.8 lb. oz. 77.021 kg. Patient's BMI: 29.1 3. Vital Signs: BP: 147/82 Pulse: 96 Resp: 14 Temp: 02 Sat: 100 ECG Mon: 4. Pain Intensity: 0 5. Fall Risk: Dizziness: N Needs help standing or walking: N Fallen in the last 3 months: Y Fall risk comments: 6. Patient on Blood Thinner: None 7. History of Hypertension: N 8. Opioid Therapy greater than 6 weeks: N Opiate Contract Signed: 9. Risk Assessment Tool Provided: LOW RISK 0 10. Functional Assessment Tool: 11. Recreational Drug Use: Never Drug Type: Tobacco Use: Former Smoker Tobacco Type: Amount or Packs/day: How Many Years: Alcohol Use: Yes Frequency: Weekly Quant: 1
--- NOTE | 2020-10-19 09:33 | HPC ---
[facility] [place] [address] PAIN MANAGEMENT CONSULTATION Name: LÁZARO CHEW Room #: REG [facility].#: [id number] Admission: 10/12/20 Attend Phys: Ilya Herndon DO Discharge: Date of : 60 Report #: [id number] THIS REPORT FOR: cc: SEEMA PALACIOS Physician not on staff Ilya Herndon DO ~ DOC #: [id number] cc: Yehuda Mckeon MD, MD Ilya North DO DATE OF SERVICE: 10/12/2020 REFERRING PHYSICIAN: Yehuda Mckeon MD PRIMARY CARE PHYSICIAN: Dr. Camryn Mack. CHIEF COMPLAINT: Bilateral lower extremity pain with paresthesias. HISTORY OF PRESENT ILLNESS: As you know, the patient is a very pleasant 59-year-old female returning in followup visit for medication management. The patient feels the medications provided for her neuropathic pain are working beneficially for pain control. She is denying side effects of medication including sleepiness, disorientation, confusion, mental slowing or extreme dry mucous membranes. She feels the nortriptyline is a beneficial agent for her ongoing pain. She wishes no changes in that therapy at this time. She is extremely pleased with her response to treatment. As you are aware, the patient underwent ankle surgery that left her somewhat debilitated, but did not exacerbate her chronic neuropathic pain. She is very pleased with response to medication, returning today in followup visit stating this is the first time she has been out in a long time to see physician. She was able to ambulate in without difficulty and has had no recurrence of her neuropathic symptoms with the use of the nortriptyline. She returns for refill of medications for the next year. ALLERGIES: No known drug allergies. CURRENT MEDICATIONS: Nortriptyline 150 mg p.o. at bedtime, vitamin D 5000 units per day, Detrol-LA 4 mg once a day, Dexilant 60 mg once a day, valacyclovir 1 g per day. SOCIAL HISTORY: The patient denies tobacco, alcohol or IV or illicit drug use. She is unaccompanied at today's visit. IMAGING STUDIES: No new imaging available. PHYSICAL EXAMINATION: VITAL SIGNS: Blood pressure 147/82, pulse is 96, respiratory rate 14 and [facility] [address] [place] [address] PAIN MANAGEMENT CONSULTATION Name: LÁZARO CHEW Room #: REG [facility]..#: [id number] Admission: 10/12/20 Attend Phys: Ilya Herndon DO Discharge: Date of : 60 Report #: [id number] unlabored. The patient 100% on room air. Height 5 feet 4 inches tall, weight 169.8 pounds, BMI calculated 29.1. GENERAL: Well-developed, well-nourished, well-hydrated 59-year-old female appearing her stated age, placing current pain score at around over 0/10. HEENT: Normocephalic and atraumatic. Pupils are equal, round and responsive to light. Extraocular muscles are intact. She is wearing a mask in compliance with COVID-19 regulations. EXTREMITIES: Show no clubbing, no cyanosis. No appreciable edema. MUSCULOSKELETAL: Lower extremity strength appears symmetrical today /5. Muscle bulk and tone is symmetrical. Well-healed surgical scar over the left ankle. Seated straight leg raising negative. Supine straight leg raising negative. Gait remains antalgic, favoring left lower extremity. Skin color changes are not noted over the bilateral feet. Skin temperature is equal when comparing the dorsum of the feet and the plantar surfaces of the feet. ASSESSMENT: 1. Bilateral foot pain and paresthesias. 2. Peripheral neuropathy. 3. Small fiber neuropathy. 4. Chronic intractable pain. PLAN: 1. The patient returns today in followup visit indicating that she has received excellent benefit with the nortriptyline 150 mg p.o. at bedtime. She is denying any side effects of medication including sleepiness, disorientation, confusion, mental slowing or severe mucous membranes drying. She has been able to recover from her recent ankle surgery and is now ambulating easily. Even with a surgery, her neuropathic symptoms did not reoccur. She is extremely pleased about that her response to treatment, returning today for refill of medications. 2. We did discuss with the patient are willingness to continue the nortriptyline. I am pleased to see she is doing well. We recommend that she continue the therapy at 150 mg p.o. at bedtime. The fact that she is experiencing no side effects and such excellent analgesic benefit, we recommend continued treatment. 3. The patient was provided prescription of nortriptyline 75 mg dose 2 tablets p.o. at bedtime have given the patient #180 tablets, which is at a 3-month prescription along with refills lasting for the next year. This gives the patient a 1-year prescription. I did advise the patient to follow up with us in one year or can follow up with her PCP as necessary. 4. We discussed with the patient other concerns she had in regard to generalized pain that appears to be myofascial in origin. We would recommend the patient remain with conservative treatment. The symptoms that she is experiencing appears to be related more to increasing activity of late and the change in gait secondary to her surgery. We encouraged the patient to continue physical therapy and activities. I do feel the symptoms that she is experiencing will improve with tincture of time. The patient is agreeable with [facility] [address] [place] [address] PAIN MANAGEMENT CONSULTATION Name: LÁZARO CHEW Room #: REG [facility]#: [id number] Admission: 10/12/20 Attend Phys: Ilya Herndon DO Discharge: Date of : 60 Report #: [id number] this plan. 5. We will see the patient back in followup visit in approximately one year or earlier if adjustments need to be made. We were pleased to see the patient is doing well and will see her back on an as needed basis. Ilya Herndon DO JEJ/ALL <ELECTRONICALLY SIGNED> By: Ilya Herndon DO 10/19/20 [id number] Ilya Herndon DO /nt
== END ==
LOC: PAIN 07:03
PROVIDERS: ATTEND Anesthesiology Pain Medicine
DX: M79.671 Pain in right foot (principal); M79.672 Pain in left foot; G62.9 Polyneuropathy, unspecified; G89.4 Chronic pain syndrome; Z79.899 Other long term (current) drug therapy; Z79.891 Long term (current) use of opiate analgesic